=== PATIENT | female | born 1995 | race African-American/Black ===

== ENCOUNTER 2018-09-09 10:58 | Emergency (ER) | payer MEDICAID ==
[~2018-09-09] VITALS: Ht 154.9 cm; Wt 108.9 kg
[2018-09-09 11:18] LABS: Urine Bacteria None Seen /hpf (None Seen)
[2018-09-09 11:53] VITALS: BP 145/82
[2018-09-09 12:14] LABS: Urine Blood Negative /uL (Negative); Urine Specific Gravity 1.014 (1.001-1.035)
[2018-09-09 12:15] LABS: Urine WBC 1 /hpf (0 - 5)
[2018-09-09 12:25] LABS: Albumin 3.7 g/dL (3.4-5.0); BUN/Creatinine Ratio 10.5; Calcium 9.2 mg/dL (8.5-10.1); Potassium 4.2 mmol/L (3.5-5.1)
[2018-09-09 12:26] LABS: Hematocrit 41.4 % (36.0-46.0); Hemoglobin 13.8 g/dL (12.2-16.2); Mean Corpuscular Hemoglobin 31.4 pg (28.0-32.0); Mean Corpuscular Hgb Conc. 33.4 g/dL (32.0-36.0); Mean Corpuscular Volume 94.1 fL (80.0-100.0); Platelet Count (auto) 268 10^3/uL (140-450); Red Cell Distribution Width 13.1 % (11.8-14.3); White Blood Cell 5.3 10^3/uL (4.4-10.8)
[2018-09-09 12:28] LABS: Bilirubin, Total 0.4 mg/dL (0.2-1.0); Total Protein 7.5 g/dL (6.4-8.2)
[2018-09-09 12:32] LABS: Band Neutrophils % (manual) 0; Basophils % (manual) 0 (0.0-2.0); Blast Cells 0; Metamyelocytes % 0; Myelocytes % 0; Promyelocytes % 0; Reactive Lymphocytes 0
[2018-09-09 13:08] LABS: Eosinophils % (manual) 2 (0-7); Lymphocytes % (manual) 56 (10.0-50.0); Monocytes % (manual) 7 (0-12)
== END 2018-09-09 13:26 | disposition home or self-care (01) ==
LOC: ER 10:58
DX: R10.11 Right upper quadrant pain (principal); N20.0 Calculus of kidney
CPT/HCPCS: 36415; 74176; 80053; 81001; 81025; 83690; 85007; 85027

== ENCOUNTER 2020-05-25 14:00 | Emergency (ER) | payer MEDICAID ==
[~2020-05-25] VITALS: Ht 170.2 cm; Wt 90.7 kg
[2020-05-25] MEDS ORDERED: SODIUM CHLORIDE 0.9% 1,000 ML IV ONE ×2 (14:15)
[2020-05-25 14:33] LABS: Hematocrit 37.5 % (36.0-46.0); Hemoglobin 12.4 g/dL (12.2-16.2); Mean Corpuscular Hemoglobin 30.9 pg (28.0-32.0); Mean Corpuscular Volume 93.7 fL (80.0-100.0); Platelet Count (auto) 372 10^3/uL (140-450); Red Cell Distribution Width 13.7 % (11.8-14.3); White Blood Cell 7.4 10^3/uL (4.4-10.8)
[2020-05-25 14:38] LABS: Band Neutrophils % (manual) 0; Basophils % (manual) 0 (0.0-2.0); Blast Cells 0; Metamyelocytes % 0; Myelocytes % 0; Promyelocytes % 0; Reactive Lymphocytes 0
[2020-05-25 14:50] LABS: INR 0.97 (0.9-1.15); Partial Thromboplastin Time 23.2 sec (23.0-31.2)
[2020-05-25 15:01] LABS: Albumin 3.2 g/dL (3.4-5.0); Anion Gap 8 (5-15); Blood Urea Nitrogen 9 mg/dL (7-18); Calcium 8.6 mg/dL (8.5-10.1); Carbon Dioxide 24 mmol/L (21-32); Chloride 106 mmol/L (98-107); Glucose 221 mg/dL (74-106); Potassium 3.7 mmol/L (3.5-5.1); Sodium 138 mmol/L (136-145)
[2020-05-25 15:08] LABS: Alanine Aminotransferase 29 U/L (13-56); Alkaline Phosphatase 48 U/L (45-117); Aspartate Aminotransferase 19 U/L (15-37); Bilirubin, Total 0.4 mg/dL (0.2-1.0); GFR African American 110 mL/min; GFR Non-African American 91 mL/min; Total Protein 7.4 g/dL (6.4-8.2)
[2020-05-25 15:29] LABS: Eosinophils % (manual) 1 (0-7); Lymphocytes % (manual) 48 (10.0-50.0); Monocytes % (manual) 7 (0-12)
[2020-05-25 17:00] VITALS: BP 108/56
[2020-05-25 18:47] LABS: Urine Bacteria FEW /hpf (None Seen); Urine Blood Negative /uL (Negative); Urine Hyaline Cast FEW /lpf (0 - 2); Urine Mucus FEW (None Seen); Urine Specific Gravity 1.018 (1.001-1.035); Urine WBC 5 /hpf (0 - 5)
[2020-05-25 18:51] LABS: Alcohol, Urine < 3.0 mg/dL (0-10); Amphetamine Screen, Urine NEGATIVE (NEGATIVE); Barbiturate Scree,Urine NEGATIVE (NEGATIVE); Benzodiazephine Screen, Urine NEGATIVE (NEGATIVE); Cannabinoid Screen, Urine POSITIVE (NEGATIVE); Cocaine Screen, Urine POSITIVE (NEGATIVE); Opiate Scree,Urine NEGATIVE (NEGATIVE); Phencyclidine Screen, Urine NEGATIVE (NEGATIVE)
== END 2020-05-25 17:54 | disposition home or self-care (01) ==
LOC: EDBD 14:00 → ER 14:00
DX: G93.41 Metabolic encephalopathy (principal); R73.9 Hyperglycemia, unspecified
CPT/HCPCS: 36415; 70450; 71045; 80053; 80307; 81001; 84484; 84702; 85007; 85027; 85610; 85730; 93005; 96360; 96361; 99285; J7030

== ENCOUNTER 2022-11-17 11:11 | Emergency (ER) | payer MEDICAID ==
[~2022-11-17] VITALS: Ht 167.6 cm; Wt 102.0 kg
[2022-11-17 11:37] VITALS: BP 113/74; PULSE 95; RESP 17; TEMP 97.4; O2SAT 98
[2022-11-17 12:38] LABS: Basophils # (auto) 0 10 ^3/uL (0-0.2); Basophils % (auto) 0.3 % (0.0-2.0); Eosinophils # (auto) 0 10 ^3/uL (0-0.8); Eosinophils % (auto) 0.2 % (0.0-7.0); Hematocrit 40.4 % (36.0-46.0); Hemoglobin 13.4 g/dL (12.2-16.2); Lymphocytes # (auto) 1.4 10 ^3/uL (0.4-5.4); Lymphocytes % (auto) 22.6 % (10.0-50.0); Mean Corpuscular Hemoglobin 31.8 pg (28.0-32.0); Mean Corpuscular Hgb Conc. 33.2 g/dL (32.0-36.0); Mean Corpuscular Volume 95.6 fL (80.0-100.0); Monocytes # (auto) 0.3 10 ^3/uL (0-1.3); Neutrophils # (auto) 4.6 10 ^3/uL (1.6-8.6); Neutrophils % (auto) 72.9 % (37.0-80.0); Nucleated Red Blood Cells % 0.1 %; Red Blood Cells 4.23 10^6/uL (4.0-5.20); Red Cell Distribution Width 13.1 % (11.8-14.3); White Blood Cell 6.3 10^3/uL (4.4-10.8)
[2022-11-17 12:54] LABS: Alanine Aminotransferase 10 U/L (7-40); Albumin 4.2 g/dL (3.2-4.8); Alkaline Phosphatase 43 U/L (46-116); Aspartate Aminotransferase < 8 U/L (13-40); Bilirubin, Total 0.6 mg/dL (0.2-1.0); Chloride 107 mmol/L (98-107); Glucose 79 mg/dL (74-106); Potassium 3.6 mmol/L (3.5-5.1); Sodium 136 mmol/L (136-145); Total Protein 7.2 g/dL (5.7-8.2)
[2022-11-17 12:55] LABS: BUN/Creatinine Ratio 7.2 (10.0-20.0); Blood Urea Nitrogen < 5 mg/dL (9-23)
[2022-11-17 13:58] LABS: Blood Alcohol < 3.0 mg/dL (<10)
== END 2022-11-17 14:31 | disposition left against medical advice (07) ==
LOC: ER 11:11
DX: R56.9 Unspecified convulsions (principal); F15.90 Other stimulant use, unspecified, uncomplicated; Z90.89 Acquired absence of other organs
CPT/HCPCS: 36415; 70450; 80053; 80320; 85025; 93005; 96374; 99285; J1953; J7060

== ENCOUNTER 2023-04-04 20:01 | Emergency (ER) | payer MEDICAID ==
[~2023-04-04] VITALS: Ht 154.9 cm; Wt 90.8 kg
[2023-04-04] MEDS ORDERED: ACETAMINOPHEN 325 MG TAB PO ONE (20:15)
[2023-04-04 20:16] VITALS: BP 140/85; PULSE 98; RESP 19; O2SAT 100
[2023-04-04 20:21] VITALS: TEMP 100.4
[2023-04-04 21:14] LABS: COVID19 ANTIGEN SOFIA FIA NEGATIVE (NEGATIVE)
[2023-04-04 21:17] LABS: Rapid Influenza A Positive (Negative); Rapid Influenza B Negative (Negative)
== END 2023-04-04 21:47 | disposition left against medical advice (07) ==
LOC: ER 20:01
DX: J10.1 Influenza due to other identified influenza virus with other respiratory manifestations (principal); M79.605 Pain in left leg; M79.604 Pain in right leg; Z90.89 Acquired absence of other organs; Z20.822 Contact with and (suspected) exposure to COVID-19
CPT/HCPCS: 36415; 87426; 87804

== ENCOUNTER 2023-08-25 07:38 | Emergency (ER) | payer MEDICAID ==
[~2023-08-25] VITALS: Ht 154.9 cm; Wt 93.4 kg
[2023-08-25 08:50] VITALS: BP 120/88; PULSE 114; RESP 15; TEMP 98.6; O2SAT 100
[2023-08-25] MEDS ORDERED: HYDR-4798 PO (09:28)
[2023-08-25] MEDS: HYDROcodone-ACET 10/325MG TAB PO ONE (09:30)
== END 2023-08-25 09:34 | disposition home or self-care (01) ==
LOC: ER 07:38
DX: L02.426 Furuncle of left lower limb (principal); E28.2 Polycystic ovarian syndrome; F17.210 Nicotine dependence, cigarettes, uncomplicated; F12.10 Cannabis abuse, uncomplicated; Z90.89 Acquired absence of other organs

== ENCOUNTER 2023-10-23 07:49 | Emergency (ER) | payer MEDICAID ==
[~2023-10-23] VITALS: Ht 154.9 cm; Wt 91.7 kg
[~2023-10-23 07:49] MED LIST: HYDR-4798 PO
[2023-10-23] MEDS: ACETAMINOPHEN 325 MG TAB PO ONE (08:33)
[2023-10-23 08:37] LABS: Urine Bacteria FEW /hpf (None Seen); Urine Blood 3+ /uL (Negative); Urine Clarity Turbid (Clear); Urine Color Brown (Yellow); Urine Mucus FEW (None Seen); Urine Protein, UAD 1+ (Negative); Urine Specific Gravity 1.022 (1.001-1.035); Urine Urobilinogen 2 mg/dL (Negative); Urine WBC 12 /hpf (0 - 5); Urine pH 6.5 (5.0-9.0)
[2023-10-23 08:40] VITALS: TEMP 98.6
[2023-10-23 08:41] VITALS: PULSE 61; RESP 11; O2SAT 99
[2023-10-23 08:46] LABS: Basophils # (auto) 0 10 ^3/uL (0-0.2); Basophils % (auto) 0.5 % (0.0-2.0); Eosinophils # (auto) 0 10 ^3/uL (0-0.8); Eosinophils % (auto) 0.9 % (0.0-7.0); Hematocrit 34.2 % (36.0-46.0); Hemoglobin 11.7 g/dL (12.2-16.2); Lymphocytes # (auto) 1.6 10 ^3/uL (0.4-5.4); Lymphocytes % (auto) 38.5 % (10.0-50.0); Mean Corpuscular Hemoglobin 33.6 pg (28.0-32.0); Mean Corpuscular Hgb Conc. 34.4 g/dL (32.0-36.0); Mean Corpuscular Volume 97.7 fL (80.0-100.0); Monocytes # (auto) 0.3 10 ^3/uL (0-1.3); Neutrophils # (auto) 2.3 10 ^3/uL (1.6-8.6); Neutrophils % (auto) 54.1 % (37.0-80.0); Nucleated Red Blood Cells % 0.1 %; Red Cell Distribution Width 14.2 % (11.8-14.3); White Blood Cell 4.3 10^3/uL (4.4-10.8)
[2023-10-23 10:00] VITALS: O2SAT 98
[2023-10-23 11:05] LABS: INR 1.03 (0.9-1.15); Partial Thromboplastin Time 26.8 SEC (24.5-34.5); Prothrombin Time 10.9 sec (9.3-11.8)
[2023-10-23 11:12] LABS: Albumin 3.6 g/dL (3.2-4.8); Alkaline Phosphatase 31 U/L (46-116); Anion Gap 3 (5-15); Aspartate Aminotransferase < 8 U/L (13-40); Bilirubin, Total 0.5 mg/dL (0.2-1.0); Calcium 8.9 mg/dL (8.7-10.4); Carbon Dioxide 27 mmol/L (20-30); Chloride 110 mmol/L (98-107); Glucose 91 mg/dL (74-106); Potassium 3.8 mmol/L (3.5-5.1); Sodium 140 mmol/L (136-145); Total Protein 5.7 g/dL (5.7-8.2)
[2023-10-23 11:15] LABS: Alanine Aminotransferase < 9 U/L (7-40); BUN/Creatinine Ratio 8.9 (10.0-20.0); Blood Urea Nitrogen < 5 mg/dL (9-23)
[2023-10-23 11:47] VITALS: BP 100/72; PULSE 60; RESP 18
[2023-10-23] MEDS: MORPHINE SULFATE 4 MG/ML SYR/VIAL IV ONE (11:47)
== END 2023-10-23 11:56 | disposition home or self-care (01) ==
LOC: ER 07:49
DX: O20.0 Threatened abortion (principal); R10.2 Pelvic and perineal pain; Z3A.01 Less than 8 weeks gestation of pregnancy
CPT/HCPCS: 36415; 76801; 80053; 81001; 84702; 85025; 85610; 85730; 86900; 86901; 96374; 99285; J2270